=== PATIENT | female | born 1930 | race Two or more races ===

== ENCOUNTER 2018-02-03 14:42 | Emergency (ER) | payer MEDICARE ==
[~2018-02-03] VITALS: Ht 154.9 cm; Wt 64.0 kg
[2018-02-03 14:42] VITALS: BP 152/65
== END 2018-02-03 15:42 | disposition home or self-care (01) ==
LOC: ER 14:45
DX: H60.8X1 Other otitis externa, right ear (principal); I10 Essential (primary) hypertension; E11.9 Type 2 diabetes mellitus without complications
CPT/HCPCS: A4606; Z7610